=== PATIENT | male | born 1975 | race Caucasian/White ===

== ENCOUNTER 2025-02-09 08:30 | Emergency (ER) | payer MEDICARE, MEDICAID ==
[~2025-02-09] VITALS: Ht 175.3 cm; Wt 74.4 kg
[2025-02-09 08:40] VITALS: BP 132/84; PULSE 76; RESP 18; TEMP 97.6; O2SAT 97
== END 2025-02-09 10:41 | disposition left against medical advice (07) ==
LOC: ER 08:31
DX: Z00.8 Encounter for other general examination (principal)
CPT/HCPCS: 99281